=== PATIENT | female | born 1960 | race Caucasian/White ===

== ENCOUNTER 2022-05-25 12:39 | Outpatient (CLI) | payer OTHER, SELFPAY ==
--- NOTE | 2022-05-25 13:20 | CRLHL7_ITS ---
For Patients: As a result of the Century Cures Act, medical imaging exams and procedure reports are released immediately into your electronic medical record. You may view this report before your referring provider. If you have questions, please contact your health care provider. BILATERAL SCREENING MAMMOGRAM WITH COMPUTER-AIDED DETECTION TECHNIQUE: CC and MLO views were obtained. These mammographic images have been obtained using full-field digital technique. These mammographic images were interpreted with the benefit of computer-aided detection. COMPARISON FILM: 04/11/21, 03/19/20, 03/18/19. FINDINGS: There are scattered areas of fibroglandular density IMPRESSION: There is no radiographic evidence for malignancy. ASSESSMENT: BI-RADS Category 2: Benign RECOMMENDATION: Routine screening mammogram in 1 year. A lay language report of this examination will be provided to the patient. Omar Martin M.D. Diagnostic Radiologist [email or web address] Transcribed: 3:26 p.rajat chacon/Dictated by: Omar Martin MD @ 05/26/2022 8:36:00 AM (Electronically Signed)
== END 2022-05-25 12:40 | disposition home or self-care (01) ==
LOC: MAMMO 12:41
PROVIDERS: PCP Internal Medicine; Visit Provider Internal Medicine
DX: Z12.31 Encounter for screening mammogram for malignant neoplasm of breast (principal)
CPT/HCPCS: 77067

== ENCOUNTER 2022-06-23 10:44 | Outpatient (CLI) | payer OTHER, SELFPAY ==
[2022-06-23 11:16] LABS: Chloride* 105 mmol/L (96-114); Potassium* 4.3 mmol/L (3.6-5.1); Sodium* 140 mmol/L (135-149)
[2022-06-23 11:18] LABS: Cholesterol* 300 mg/dL (90-199)
[2022-06-23 11:19] LABS: Blood Urea Nitrogen* 19 mg/dL (7-30); Calcium* 9.8 mg/dL (8.4-10.6); Carbon Dioxide* 29 mmol/L (20-32); Creatinine* 0.7 mg/dL (0.5-1.5); Estimated Glomerular Filt Rate 97 ml/min; Glucose* 99 mg/dL (60-115); HDL Cholesterol* 72 mg/dL (>=50); LDL Cholesterol Calculated 209 mg/dL (<100); Triglycerides* 96 mg/dL (40-149)
== END 2022-06-23 10:45 | disposition home or self-care (01) ==
PROVIDERS: PCP Internal Medicine; Visit Provider Internal Medicine
DX: E78.5 Hyperlipidemia, unspecified (principal); I10 Essential (primary) hypertension
CPT/HCPCS: 80048; 80061

== ENCOUNTER 2022-08-31 08:25 | Outpatient (CLI) | payer OTHER, SELFPAY | END 2022-08-31 08:26 | disposition home or self-care (01) | LOC: NFLDREF 09-01 15:17 | PROVIDERS: PCP Internal Medicine; Referring Provider Internal Medicine; Visit Provider Internal Medicine | DX: E78.5 Hyperlipidemia, unspecified (principal) | CPT/HCPCS: 80061 ==

== ENCOUNTER 2022-09-01 15:15 | Outpatient (RCR) | payer OTHER, SELFPAY | END 2022-10-24 15:04 | disposition home or self-care (01) | PROVIDERS: PCP Internal Medicine; Visit Provider Internal Medicine | DX: M67.922 Unspecified disorder of synovium and tendon, left upper arm (principal); M62.81 Muscle weakness (generalized); M25.511 Pain in right shoulder; Z51.89 Encounter for other specified aftercare | CPT/HCPCS: 97110; 97140; 97161 ==

== ENCOUNTER 2023-07-26 08:39 | Outpatient (CLI) | payer OTHER, SELFPAY | END 2023-07-26 08:40 | disposition home or self-care (01) | LOC: NFLDREF 07-27 07:01 | PROVIDERS: PCP Internal Medicine; Referring Provider Internal Medicine; Visit Provider Internal Medicine | DX: E78.5 Hyperlipidemia, unspecified (principal) | CPT/HCPCS: 80061 ==

== ENCOUNTER 2023-10-22 14:35 | Outpatient (CLI) | payer OTHER, SELFPAY ==
--- OUTSIDE RECORDS SUMMARY | 2023-10-22 14:38 | XMS_ITS | Clinical Summary ---
Author Name Unknown Organization [facility] Address [place], [place] [address] Care Team Providers Care Home Health Care Respiratory Therapist Name Role Phone Laura Plascencia MD Primary Care Provider [phone] Social History Tobacco Use Types Packs/Day Years Used Date Smoking Tobacco: Never Assessed Sex and Gender Information Value Date Recorded Sex Assigned at Not on file Gender Identity Not on file Sexual Orientation Not on file Plan of Treatment Health Maintenance Due Date Last Done Comments Tdap 1969 Depression screening for age 12+ 1970 HIV for age 15-65 1973 BMI (ht and wt on same day) for age 18+ 1976 Hepatitis C screening for ag e 18-79 1976 Tetanus booster 1978 Colonoscopy through age 75 11/25/2003 Lipids for age 45-75 11/25/2003 Mammogram for age 45-75 11/25/2003 Zoster (shingles) series for age 50+ (1 of 2) 2008 COVID-19 vaccine series (2022-24 season) 2023 10/08/2020, 09/10/2020 Influenza for age 50-64 02/24/2024 Pap test for age 21-65 06/29/2025 , 06/29/2022 Pneumococcal series for age 6-64 Aged Out No longer eligible b ased on patient's age to complete this topic Procedures Procedure Name Priority Date/Time Associated Diagnosis Comments HPV THIN PREP Routine 06/29/2022 1:30 PM GYROSCOPE REPAIRER from Last 3 Months or Most Recently Relevant to Health Maintenance Results * HPV HIGH RISK (06/29/2022 1:30 PM GYROSCOPE REPAIRER) TYPE 16 Negative Negative 07/04/2022 2:13 PM GYROSCOPE REPAIRER [facility] TYPE 18 Negative Negative 07/04/2022 2:13 PM GYROSCOPE REPAIRER [facility] OTHER HIGH RISK TYPES Negative Negative 07/04/2022 2:13 PM GYROSCOPE REPAIRER [facility] Other (Cervical) 06/29/2022 1:30 PM GYROSCOPE REPAIRER 07/03/2022 9:18 AM GYROSCOPE REPAIRER Narrative [facility] - 07/04/2022 2:13 PM GYROSCOPE REPAIRER HPV types 16, 18, 31, 33, 35, 39, 45, 51, 52, 56, 58, 59, 66 and 68 DNA were undetectable or below the pre-set threshold. Methodology: Rosangela Trevin 4800 HPV Test Laura Plascencia MD MICROBIOLOGY [facility] [address] [place] [address], from Last 3 Months or Most Recently Relevant to Health Maintenance Care Teams Home Health Care Respiratory Therapist Relationship Specialty Start Date End Date Laura Plascencia MD [address] [place] [address] PCP - General Internal Medicine 04/18/21
--- NOTE | 2023-10-22 14:40 | MM_ITS ---
Patient: TRAVIS BELL Facility:?[facility] Patient ID:?[id number] Site Patient ID:?[id number]. Site :?[id number] Study:?XRay-Breast Bilateral 3D W/CAD-10/22/2023 3:45:06 PM Ordering Physician:Laura Salinas Final Report: BILATERAL SCREENING MAMMOGRAM WITH COMPUTER-AIDED DETECTION AND TOMOSYNTHESIS TECHNIQUE: CC and MLO views were obtained. These mammographic images have been obtained using full-field digital technique. These mammographic images were interpreted with the benefit of computer-aided detection. Breast Tomosynthesis was used in this interpretation. COMPARISON FILM: 05/25/22, 04/11/21, 03/19/20. FINDINGS: The breasts are heterogeneously dense, which may obscure small masses. IMPRESSION: There is no radiographic evidence for malignancy. ASSESSMENT: BI-RADS Category 2: Benign RECOMMENDATION: Routine screening mammogram in 1 year. A lay language report of this examination will be provided to the patient. Omar Martin M.D. Diagnostic Radiologist [email or web address] DSM/sp R& Transcribed: 3:05 p.m. SP/Dictated by: Omar Martin MD @ 10/23/2023 1:16:00 PM Signed by:?Omar Martin MD @10/23/2023 3:56:43 PM (Electronic Signature)
== END 2023-10-22 14:36 | disposition home or self-care (01) ==
LOC: MAMMO 14:36
PROVIDERS: PCP Internal Medicine; Visit Provider Internal Medicine
DX: Z12.31 Encounter for screening mammogram for malignant neoplasm of breast (principal); R92.2 Inconclusive mammogram
CPT/HCPCS: 77063; 77067

== ENCOUNTER 2024-09-11 08:45 | Outpatient (CLI) | payer MEDICARE, SELFPAY | END 2024-09-11 08:46 | disposition home or self-care (01) | LOC: NFLDREF 09-15 12:39 | PROVIDERS: PCP Internal Medicine; Referring Provider Internal Medicine; Visit Provider Internal Medicine | DX: E78.5 Hyperlipidemia, unspecified (principal) | CPT/HCPCS: 80061 ==

== ENCOUNTER 2024-11-06 13:14 | Outpatient (CLI) | payer MEDICARE, SELFPAY ==
--- NOTE | 2024-11-06 13:30 | CRLHL7_ITS ---
For Patients: As a result of the Century Cures Act, medical imaging exams and procedure reports are released immediately into your electronic medical record. You may view this report before your referring provider. If you have questions, please contact your health care provider. XR DXA Bone Mineral Density (BMD) Reason for exam: Asymptomatic menopausal state. Current height (inches): 69.0 Weight (lbs.): 212.0 Menopause age: 48 Ethnicity: White 1. Have you had a previous hip or vertebral fracture? No. 2. Have you had any fractures during your adult life which did not result from significant trauma (e.g., auto accident)? Yes. 3. Did either of your parents have a hip fracture? Yes. 4. Do you smoke? No. 5. Have you ever taken Glucocorticoids? No. 6. Do you have rheumatoid arthritis? No. 7. Do you have secondary osteoporosis? No. 8. Do you drink 3 or more alcoholic drinks per day? No. 9. Are you being treated for osteoporosis? No. 10. Have you ever taken any of the following medications: Actonel, Evista, Fosamax, Miacalcin, Reclast, Boniva, Forteo, HRT (i.e., estrogen/hormone therapy), Protelos, Prolia, Vitamin D, Calcium, other ??? please specify. ANSWER: Yes; vitamin D, calcium. 11. Do you have any of the following medical conditions: Anorexia or bulimia, asthma or emphysema, end stage renal disease, hyperparathyroidism, any seizure disorders, cancer, inflammatory bowel diseases, hysterectomy, other ??? please specify. ANSWER: No. 12. What was your maximum height (inches)? 70. 13. Do you perform weightbearing exercise regularly? Yes. 14. Do you regularly consume dairy products? Yes. 15. Do you drink caffeinated beverages? Yes. 16. At what age did your period start? 10. 17. Are you premenopausal? No. 18. How many full-term pregnancies have you had? 0. 19. Have you ever missed your period for more than 6 months in a row (not including or menopause)? No. TECHNIQUE: Bone mineral density study was performed using the Contraqer. FINDINGS: The results of the study expressed as bone mineral density (BMD) are as follows: Lumbar Spine L1 to L4: BMD: 0.844 g/cm2. T-score: -1.8. Z-score: 0.0. Neck Left: BMD: 0.690 g/cm2. T-score: -1.4. Z-score: 0.1. Right: BMD: 0.629 g/cm2. T-score: -2.0. Z-score: -0.4. Total Left: BMD: 0.823 g/cm2. T-score: -1.0. Z-score: 0.3. Right: BMD: 0.798 g/cm2. T-score: -1.2. Z-score: 0.1. IMPRESSION: Osteopenia. FRAX 10-year Fracture Risk Major Osteoporotic Fracture: 29% Hip Fracture: 2.9% Reported Risk Factors: [place] () Neck BMD = 0.629, BMI = 31.3. Previous fracture, parental fracture. OMAR COWART M.D. Diagnostic Radiologist [email or web address] Transcribed: 12:[address]/Dictated by: Omar Cowart MD @ 11/10/2024 11:34:00 AM (Electronically Signed)
--- NOTE | 2024-11-06 14:00 | CRLHL7_ITS ---
For Patients: As a result of the Century Cures Act, medical imaging exams and procedure reports are released immediately into your electronic medical record. You may view this report before your referring provider. If you have questions, please contact your health care provider. INDICATION: BILATERAL SCREENING MAMMOGRAM, ASYMPTOMATIC 63 Y/O FEMALE COMPARISON: 10/22/2023, 05/25/2022, 04/11/2021 TECHNIQUE: Digital mammogram in CC and MLO projections including computer-aided detection (CAD) and tomosynthesis. BREAST COMPOSITION: The breasts are heterogeneously dense, which may obscure small masses. FINDINGS: No suspicious findings. ASSESSMENT: BI-RADS 2 Benign RECOMMENDATION: Annual screening mammogram. A lay language report of this examination will be provided to the patient. Dictated by: Omar Martin MD @ 11/07/2024 09:25:27 (Electronically Signed)
== END 2024-11-06 13:15 | disposition home or self-care (01) ==
LOC: RAD 13:17
PROVIDERS: PCP Internal Medicine; Visit Provider Internal Medicine
DX: Z12.31 Encounter for screening mammogram for malignant neoplasm of breast (principal); R92.333 Mammographic heterogeneous density, bilateral breasts; Z78.0 Asymptomatic menopausal state; M85.89 Other specified disorders of bone density and structure, multiple sites
CPT/HCPCS: 77063; 77067; 77080